=== PATIENT | male | born 1950 | race Caucasian/White ===

== ENCOUNTER 2016-04-25 10:12 | Emergency (ER) | payer OTHER ==
[~2016-04-25] VITALS: Ht 185.4 cm; Wt 128.7 kg
[~2016-04-25 10:12] MED LIST: APRESOLINE50 MG PO; ASPIRIN81 M2 PO; ATIVAN0.5 MG PO; Aspirin Chewable PO; BRILINTA90 MG PO; CILOSTAZOL100 MG PO; Corgard PO; FISH OIL SOFTG1 EACH PO; Fish Oil PO; GLIMEPIRIDE4 MG PO; HUMALOG100 UNIT/1 SC; HYDROCHLOROTHIA25 MG PO; Habitrol,Nicoderm CQ TD; Hydrodiuril,Oretic,E PO; IMODIUM MS REL1 EACH PO; LANSOPRAZOLE30 MG PO; LANTUS 3 M100 UNITS1 SC; LEXAPRO10 MG PO; LEXAPRO20 MG PO; LISINOPRIL20 MG PO; LISINOPRIL5 MG PO; LYRICA150 MG PO; Levaquin PO; Lipitor PO; NADOLOL40 MG PO; NITROSTAT0.4 MG SL; NORCO 5/3251 TABLET PO; NOVOLOG PE100 UNITS/ SC; Nitrostat,NitroQuick SL; PLAVIX75 MG PO; PRALUENT S75 MG/1 ML SC; PRINIVIL20 MG PO; PRINIVIL5 MG PO; PROTONIX40 MG PO; Plavix PO; Protonix PO; REPATHA SU140 MG/1 M SC; TOPROL XL25 MG PO; TRICOR48 MG PO; VITAMIN D1000 INTUN PO; XANAX XR0.5 MG PO; XANAX0.5 MG PO; Xanax PO; ZOFRAN4 MG PO; Zestril,Prinivil PO
[2016-04-25 11:06] LABS: HEMATOCRIT 41.3 % (38.0-50.0); MCH 26.1 PG (29.0-34.0); MCHC 31.7 G/DL (30.0-36.0); MCV 82.3 FL (86-99); MEAN PLAT.VOLUME 10.3 uM^3 (9.0-12.4); PLATELET COUNT 158 K/uL (156-360); RBC DIS.WIDTH-CV 16.1 % (11.8-14.6); RBC DIS.WIDTH-SD 47.9 % (39-53); RED BLOOD COUNT 5.02 M/uL (4.00-5.50); WHITE BLOOD COUNT 12.3 K/uL (4.1-10.2)
[2016-04-25 11:14] LABS: CHLORIDE 105 mEq/L (99-109); POTASSIUM 4.8 mEq/L (3.7-5.4); SODIUM 141 mEq/L (136-147)
[2016-04-25 11:16] LABS: GLUCOSE 230 mg/dL (70-99)
[2016-04-25 11:17] LABS: ANION GAP 10 MEQ/L (2-14)
[2016-04-25 11:18] LABS: TOTAL BILIRUBIN 0.5 mg/dL (0.0-1.0)
[2016-04-25 11:19] LABS: ALKALINE PHOSPHATASE 117 IU/L (3-129); GFR ESTIMATE (CALCULATED) 31 mL/min/
[2016-04-25 11:21] LABS: UREA NITROGEN (BUN) 33 mg/dL (9-23)
[2016-04-25 12:21] LABS: ADD MIUA? YES; BILIRUBIN NEGATIVE; BLOOD NEGATIVE; COLOR YELLOW ((YELLOW)); GLUCOSE (STRIP) 50; KETONES NEGATIVE; LEUKOCYTES NEGATIVE; NITRITE NEGATIVE; PROTEIN (STRIP) 100; SPECIFIC GRAVITY 1.021 (1.000-1.030); UROBILINOGEN 0.2 MG/DL (0.2-1.0)
[2016-04-25 12:35] LABS: BACTERIA RARE /HPF; EPITHELIAL CELLS NONE SEEN /HPF; HYALINE CASTS 0-5 /LPF; MUCUS TRACE /LPF; WHITE BLOOD CELLS 0-5 /HPF (0-5)
[2016-04-25 13:18] LABS: TROP-I INTERPRETATION NEGATIVE; TROPONIN-I 0.03 ng/mL (0.0-0.30)
[2016-04-25 14:16] VITALS: BP 144/73
== END 2016-04-25 14:17 | disposition home or self-care (01) ==
LOC: EME → EDBD 10:12 → EME 14:17
PROVIDERS: Nurse Practitioner Family
DX: S22.32XA Fracture of one rib, left side, initial encounter for closed fracture (principal); R10.9 Unspecified abdominal pain; E11.9 Type 2 diabetes mellitus without complications; E78.5 Hyperlipidemia, unspecified; I10 Essential (primary) hypertension; I25.2 Old myocardial infarction; K21.9 Gastro-esophageal reflux disease without esophagitis; Z86.718 Personal history of other venous thrombosis and embolism; Z98.61 Coronary angioplasty status; Z79.4 Long term (current) use of insulin; F17.200 Nicotine dependence, unspecified, uncomplicated
CPT/HCPCS: 74000; 80053; 81003; 84484; 85027; 93005; 99281; 99285; J1885; J7030

== ENCOUNTER 2016-06-21 18:48 | Observation (INO) | payer OTHER ==
[~2016-06-21] VITALS: Ht 185.4 cm; Wt 123.5 kg
[2016-06-21 20:08] LABS: HEMATOCRIT 39.8 % (38.0-50.0); MCH 25.8 PG (29.0-34.0); MCHC 31.4 G/DL (30.0-36.0); MCV 82.1 FL (86-99); MEAN PLAT.VOLUME 10.7 uM^3 (9.0-12.4); PLATELET COUNT 153 K/uL (156-360); RBC DIS.WIDTH-CV 16.3 % (11.8-14.6); RBC DIS.WIDTH-SD 48.9 % (39-53); RED BLOOD COUNT 4.85 M/uL (4.00-5.50); WHITE BLOOD COUNT 12.5 K/uL (4.1-10.2)
[2016-06-21 20:17] LABS: CHLORIDE 107 mEq/L (99-109); POTASSIUM 4.8 mEq/L (3.7-5.4); SODIUM 138 mEq/L (136-147)
[2016-06-21 20:18] LABS: GLUCOSE 195 mg/dL (70-99)
[2016-06-21 20:20] LABS: ANION GAP 11 MEQ/L (2-14)
[2016-06-21 20:22] LABS: GFR ESTIMATE (CALCULATED) 31 mL/min/
[2016-06-21 20:23] LABS: UREA NITROGEN (BUN) 30 mg/dL (9-23)
[2016-06-21 20:27] LABS: TOTAL BILIRUBIN 0.4 mg/dL (0.0-1.0)
[2016-06-21 20:28] LABS: ALKALINE PHOSPHATASE 103 IU/L (3-129)
[2016-06-21 20:29] LABS: TROP-I INTERPRETATION NEGATIVE; TROPONIN-I 0.05 ng/mL (0.0-0.30)
[2016-06-21 20:31] LABS: DIRECT BILIRUBIN 0.1 mg/dL (0.0-0.3)
[2016-06-21 20:32] LABS: LIPASE 38 U/L (1.0-51.0)
[2016-06-21] MEDS ORDERED: IMODIUM A-D2 M2 PO (23:07)
[2016-06-21] MEDS ORDERED: LO-DOSE ASPIRIN81 M2 PO (23:08)
[2016-06-21] MEDS ORDERED: ATIVAN0.5 MG PO (23:08)
[2016-06-21] MEDS ORDERED: METOPROLOL TART25 MG PO (23:10)
[2016-06-21] MEDS ORDERED: ISOSORBIDE MONO30 MG PO (23:10)
[2016-06-21] MEDS ORDERED: LISINOPRIL20 MG PO (23:11)
[2016-06-21] MEDS ORDERED: TRESIBA FL200 UNIT/1 SC (23:13)
[2016-06-21] MEDS ORDERED: HUMALOG100 UNIT/1 SC (23:14)
[2016-06-21] MEDS ORDERED: NICOTINE PATCH1 EAC2 TD (23:15)
[2016-06-22 02:29] VITALS: BP 152/73
[2016-06-22 05:33] LABS: BASOPHIL COUNT 0.1 K/uL (0-0.1); EOSINOPHIL (%) 1.9 % (0-5); EOSINOPHIL COUNT 0.2 K/uL (0-0.3); HEMATOCRIT 39.2 % (38.0-50.0); IMMATURE GRANULOCYTE (%) 0.8 % (0.0-0.7); IMMATURE GRANULOCYTE COUNT 0.1 K/uL; INSTRUMENT ABS NEUTROPHIL CT 8.2 K/uL; LYMPHOCYTE COUNT 2.2 K/uL (1.0-2.8); MCH 25.3 PG (29.0-34.0); MCHC 30.6 G/DL (30.0-36.0); MCV 82.7 FL (86-99); MEAN PLAT.VOLUME 10.5 uM^3 (9.0-12.4); MONOCYTE (%) 9.5 % (3-12); MONOCYTE COUNT 1.1 K/uL (0-0.8); NEUTROPHIL (%) 68.6 % (45-76); NEUTROPHIL COUNT 8.2 K/uL (1.8-6.4); PLATELET COUNT 137 K/uL (156-360); RBC DIS.WIDTH-SD 48.2 % (39-53); RED BLOOD COUNT 4.74 M/uL (4.00-5.50); WHITE BLOOD COUNT 11.9 K/uL (4.1-10.2)
[2016-06-22 05:49] LABS: ANION GAP 7 MEQ/L (2-14); CHLORIDE 104 MEQ/L (99-109); GFR ESTIMATE (CALCULATED) 32 mL/min/; SAMPLE HEMOLYSIS CHECK 0; SAMPLE ICTERIC CHECK 0; SAMPLE LIPEMIA CHECK 0; SODIUM 138 MEQ/L (136-147); UREA NITROGEN (BUN) 30 mg/dL (9-23)
[2016-06-22 05:54] LABS: GLUCOSE 96 mg/dL (70-99)
[2016-06-22 08:00] VITALS: BP 135/64
[2016-06-22 08:40] LABS: POINT-OF-CARE METER ID UU14162513
[2016-06-22 12:27] LABS: POINT-OF-CARE METER ID UU13113700
[2016-06-22 12:42] VITALS: BP 143/66
[2016-06-22 14:47] VITALS: BP 143/69
[2016-06-22 16:57] LABS: POINT-OF-CARE METER ID UU13113831
[2016-06-22 20:01] VITALS: BP 154/71
[2016-06-22 20:58] LABS: POINT-OF-CARE METER ID UU13113831
[2016-06-23] VITALS: BP 174/84
[2016-06-23 03:40] VITALS: BP 180/69
[2016-06-23 06:01] LABS: HEMATOCRIT 41.5 % (38.0-50.0); MCH 25.4 PG (29.0-34.0); MCHC 30.6 G/DL (30.0-36.0); MEAN PLAT.VOLUME 10.2 uM^3 (9.0-12.4); PLATELET COUNT 140 K/uL (156-360); RBC DIS.WIDTH-CV 16.5 % (11.8-14.6); RBC DIS.WIDTH-SD 49.7 % (39-53); WHITE BLOOD COUNT 12.1 K/uL (4.1-10.2)
[2016-06-23 06:22] LABS: ANION GAP 8 MEQ/L (2-14); CHLORIDE 105 MEQ/L (99-109); GFR ESTIMATE (CALCULATED) 36 mL/min/; GLUCOSE 95 mg/dL (70-99); POTASSIUM 4.3 MEQ/L (3.7-5.4); SAMPLE HEMOLYSIS CHECK 0; SAMPLE ICTERIC CHECK 0; SAMPLE LIPEMIA CHECK 0; SODIUM 139 MEQ/L (136-147); UREA NITROGEN (BUN) 25 mg/dL (9-23)
[2016-06-23 08:11] VITALS: BP 180/81
[2016-06-23 08:18] LABS: POINT-OF-CARE METER ID UU14162513
[2016-06-23] MEDS ORDERED: CIPRO500 MG PO (09:51)
[2016-06-23] MEDS ORDERED: XANAX1 MG PO (09:51)
[2016-06-23] MEDS ORDERED: FLAGYL500 MG PO (09:51)
== END 2016-06-23 11:10 | disposition home or self-care (01) ==
LOC: EME → EDBD 18:48 → 5WEST 23:23 → EDOF 23:23 → 5WEST 06-22 02:10
PROVIDERS: Emergency Medicine; Hospitalist; Internal Medicine; Internal Medicine Gastroenterology
DX: K57.32 Diverticulitis of large intestine without perforation or abscess without bleeding (principal); I25.10 Atherosclerotic heart disease of native coronary artery without angina pectoris; Z95.5 Presence of coronary angioplasty implant and graft; I12.9 Hypertensive chronic kidney disease with stage 1 through stage 4 chronic kidney disease, or unspecified chronic kidney disease; N18.9 Chronic kidney disease, unspecified; K74.60 Unspecified cirrhosis of liver; E11.22 Type 2 diabetes mellitus with diabetic chronic kidney disease; E78.5 Hyperlipidemia, unspecified; F17.200 Nicotine dependence, unspecified, uncomplicated; D72.829 Elevated white blood cell count, unspecified; D69.6 Thrombocytopenia, unspecified; K21.9 Gastro-esophageal reflux disease without esophagitis; K22.70 Barrett's esophagus without dysplasia; I73.9 Peripheral vascular disease, unspecified; E66.9 Obesity, unspecified; Z68.35 Body mass index [BMI] 35.0-35.9, adult; F41.9 Anxiety disorder, unspecified
CPT/HCPCS: 71010; 74176; 80048; 80069; 80076; 82948; 83690; 83880; 84484; 85025; 85027; 93005; 99281; 99285; G0378; J0696; J1650; J1815; J2270; J2405; J2543; J3010; J7030; J7050; S0030

== ENCOUNTER 2016-07-09 06:26 | Inpatient (IN) | payer OTHER ==
[~2016-07-09] VITALS: Ht 185.4 cm; Wt 119.5 kg
[~2016-07-09 06:26] MED LIST changes: +CIPRO500 MG PO; +FLAGYL500 MG PO; +IMODIUM A-D2 M2 PO; +ISOSORBIDE MONO30 MG PO; +LO-DOSE ASPIRIN81 M2 PO; +METOPROLOL TART25 MG PO; +NICOTINE PATCH1 EAC2 TD; +TRESIBA FL200 UNIT/1 SC; +XANAX1 MG PO
[2016-07-09 07:24] LABS: EOSINOPHIL (%) 0.1 % (0-5); HEMATOCRIT 40.4 % (38.0-50.0); IMMATURE GRANULOCYTE (%) 1.5 % (0.0-0.7); IMMATURE GRANULOCYTE COUNT 0.3 K/uL; INSTRUMENT ABS NEUTROPHIL CT 16.1 K/uL; LYMPHOCYTE COUNT 1.4 K/uL (1.0-2.8); MCH 25.4 PG (29.0-34.0); MCHC 30.4 G/DL (30.0-36.0); MCV 83.5 FL (86-99); MEAN PLAT.VOLUME 10.2 uM^3 (9.0-12.4); MONOCYTE COUNT 0.9 K/uL (0-0.8); NEUTROPHIL (%) 86.1 % (45-76); NEUTROPHIL COUNT 16.1 K/uL (1.8-6.4); PLATELET COUNT 253 K/uL (156-360); RBC DIS.WIDTH-CV 17.3 % (11.8-14.6); RBC DIS.WIDTH-SD 51.1 % (39-53); RED BLOOD COUNT 4.84 M/uL (4.00-5.50); WHITE BLOOD COUNT 18.7 K/uL (4.1-10.2)
[2016-07-09 08:00] LABS: ALKALINE PHOSPHATASE 109 IU/L (3-129); ANION GAP 12 MEQ/L (2-14); CHLORIDE 104 MEQ/L (99-109); GFR ESTIMATE (CALCULATED) 41 mL/min/; GLUCOSE 220 mg/dL (70-99); POTASSIUM 4.4 MEQ/L (3.7-5.4); SAMPLE HEMOLYSIS CHECK 0; SAMPLE ICTERIC CHECK 0; SAMPLE LIPEMIA CHECK 0; SODIUM 139 MEQ/L (136-147); TOTAL BILIRUBIN 0.9 MG/DL (0.0-1.0); UREA NITROGEN (BUN) 42 mg/dL (9-23)
[2016-07-09 08:06] LABS: TROP-I INTERPRETATION POSITIVE; TROPONIN-I 2.18 ng/mL (0.0-0.30)
[2016-07-09] MEDS ORDERED: BUSPIRONE HCL10 MG PO (08:44)
[2016-07-09] MEDS ORDERED: ISOSORBIDE MONO30 MG PO (08:46)
[2016-07-09] MEDS ORDERED: LORAZEPAM0.5 MG PO (08:47)
[2016-07-09 09:21] LABS: INTER. NORMALIZED RATIO 1.4; PROTHROMBIN TIME 14.8 (9.2-11.2); PTT 25.7 (25-32)
[2016-07-09 10:48] LABS: PCO2 40 mm Hg (35-45); PO2 62 mm Hg (80-100)
[2016-07-09 10:49] LABS: BASE EXCESS 0 mEq/L (-3 to +3); BICARBONATE 24.8 mEq/L (22-26); CARBOXY HGB 5.1 % (0-5); METHEMOGLOBIN 0.9 % (0-1.5)
[2016-07-09 12:21] VITALS: BP 157/71
[2016-07-09] MEDS ORDERED: NOVOLOG 10100 UNITS/ SC (12:26)
[2016-07-09 13:10] LABS: TROP-I INTERPRETATION POSITIVE; TROPONIN-I 2.36 ng/mL (0.0-0.30)
[2016-07-09 16:11] LABS: POINT-OF-CARE METER ID UU13113781
[2016-07-09 16:37] VITALS: BP 127/66
[2016-07-09 19:30] VITALS: BP 164/81
[2016-07-09 19:51] LABS: TROP-I INTERPRETATION POSITIVE; TROPONIN-I 2.99 ng/mL (0.0-0.30)
[2016-07-09 20:55] LABS: POINT-OF-CARE METER ID UU14174216
[2016-07-10] VITALS (7 sets, daily range): BP systolic 115–145; BP diastolic 59–80
[2016-07-10 06:12] LABS: EOSINOPHIL (%) 0.1 % (0-5); HEMATOCRIT 38.7 % (38.0-50.0); IMMATURE GRANULOCYTE (%) 1.5 % (0.0-0.7); IMMATURE GRANULOCYTE COUNT 0.2 K/uL; INSTRUMENT ABS NEUTROPHIL CT 12.8 K/uL; LYMPHOCYTE COUNT 1.8 K/uL (1.0-2.8); MCH 25.3 PG (29.0-34.0); MCHC 30.2 G/DL (30.0-36.0); MCV 83.6 FL (86-99); MEAN PLAT.VOLUME 10.5 uM^3 (9.0-12.4); MONOCYTE (%) 5.7 % (3-12); MONOCYTE COUNT 0.9 K/uL (0-0.8); NEUTROPHIL COUNT 12.8 K/uL (1.8-6.4); PLATELET COUNT 207 K/uL (156-360); RBC DIS.WIDTH-CV 17.3 % (11.8-14.6); RBC DIS.WIDTH-SD 50.7 % (39-53); RED BLOOD COUNT 4.63 M/uL (4.00-5.50); WHITE BLOOD COUNT 15.8 K/uL (4.1-10.2)
[2016-07-10 07:36] LABS: POINT-OF-CARE METER ID UU14174216
[2016-07-10 09:01] LABS: HEMATOCRIT 37.1 % (38.0-50.0); MCH 25.7 PG (29.0-34.0); MCV 82.8 FL (86-99); MEAN PLAT.VOLUME 10.5 uM^3 (9.0-12.4); PLATELET COUNT 191 K/uL (156-360); RBC DIS.WIDTH-CV 17.6 % (11.8-14.6); RBC DIS.WIDTH-SD 50.8 % (39-53); RED BLOOD COUNT 4.48 M/uL (4.00-5.50); WHITE BLOOD COUNT 14.2 K/uL (4.1-10.2)
[2016-07-10 09:22] LABS: ALKALINE PHOSPHATASE 99 IU/L (3-129); ANION GAP 10 MEQ/L (2-14); CHLORIDE 107 MEQ/L (99-109); GFR ESTIMATE (CALCULATED) 38 mL/min/; GLUCOSE 147 mg/dL (70-99); POTASSIUM 4.4 MEQ/L (3.7-5.4); SAMPLE HEMOLYSIS CHECK 0; SAMPLE ICTERIC CHECK 0; SAMPLE LIPEMIA CHECK 0; SODIUM 141 MEQ/L (136-147); TOTAL BILIRUBIN 0.9 MG/DL (0.0-1.0); UREA NITROGEN (BUN) 47 mg/dL (9-23)
[2016-07-10 09:41] LABS: TROP-I INTERPRETATION POSITIVE; TROPONIN-I 2.98 ng/mL (0.0-0.30)
[2016-07-10 11:24] LABS: POINT-OF-CARE METER ID UU14174216
[2016-07-10 14:45] LABS: POC NON-PRINT COM 1 ND
[2016-07-10 16:49] LABS: POINT-OF-CARE USER ID ENVKC36
[2016-07-10 21:02] LABS: POINT-OF-CARE METER ID UU14174216
[2016-07-11 04:42] VITALS: BP 136/78
[2016-07-11 06:18] LABS: HEMATOCRIT 37.9 % (38.0-50.0); MCH 25.9 PG (29.0-34.0); MCHC 31.1 G/DL (30.0-36.0); MCV 83.3 FL (86-99); MEAN PLAT.VOLUME 10.5 uM^3 (9.0-12.4); PLATELET COUNT 199 K/uL (156-360); RBC DIS.WIDTH-CV 18.1 % (11.8-14.6); RBC DIS.WIDTH-SD 52.1 % (39-53); RED BLOOD COUNT 4.55 M/uL (4.00-5.50); WHITE BLOOD COUNT 12.8 K/uL (4.1-10.2)
[2016-07-11 06:50] LABS: ANION GAP 8 MEQ/L (2-14); CHLORIDE 104 MEQ/L (99-109); GFR ESTIMATE (CALCULATED) 32 mL/min/; SAMPLE HEMOLYSIS CHECK 0; SAMPLE ICTERIC CHECK 0; SAMPLE LIPEMIA CHECK 0; SODIUM 141 MEQ/L (136-147); UREA NITROGEN (BUN) 52 mg/dL (9-23)
[2016-07-11 06:52] LABS: GLUCOSE 108 mg/dL (70-99)
[2016-07-11 08:10] LABS: POINT-OF-CARE METER ID UU14174216
[2016-07-11 08:45] VITALS: BP 139/63
[2016-07-11 13:56] LABS: POINT-OF-CARE METER ID UU13113696
[2016-07-11 16:40] VITALS: BP 140/81
[2016-07-11 17:30] VITALS: BP 102/58
[2016-07-11 20:15] VITALS: BP 151/84
[2016-07-11 23:30] VITALS: BP 140/63
[2016-07-12 03:14] VITALS: BP 138/74
[2016-07-12 07:19] VITALS: BP 144/67
[2016-07-12 07:51] LABS: POINT-OF-CARE METER ID UU14174216
[2016-07-12 09:02] LABS: HEMATOCRIT 34.6 % (38.0-50.0); MCH 25.4 PG (29.0-34.0); MCHC 30.3 G/DL (30.0-36.0); MCV 83.6 FL (86-99); MEAN PLAT.VOLUME 10.2 uM^3 (9.0-12.4); PLATELET COUNT 145 K/uL (156-360); RBC DIS.WIDTH-CV 17.7 % (11.8-14.6); RBC DIS.WIDTH-SD 51.5 % (39-53); RED BLOOD COUNT 4.14 M/uL (4.00-5.50)
[2016-07-12 09:04] LABS: WHITE BLOOD COUNT 8.9 K/uL (4.1-10.2)
[2016-07-12 09:10] LABS: ANION GAP 10 MEQ/L (2-14); CHLORIDE 108 MEQ/L (99-109); GFR ESTIMATE (CALCULATED) 38 mL/min/; GLUCOSE 133 mg/dL (70-99); SAMPLE HEMOLYSIS CHECK 0; SAMPLE ICTERIC CHECK 0; SAMPLE LIPEMIA CHECK 0; SODIUM 141 MEQ/L (136-147); UREA NITROGEN (BUN) 43 mg/dL (9-23)
[2016-07-12 12:02] VITALS: BP 150/67
[2016-07-12 17:16] VITALS: BP 168/78
[2016-07-12 20:11] VITALS: BP 141/78
[2016-07-12 21:15] LABS: POINT-OF-CARE METER ID UU14174216
[2016-07-13] VITALS: BP 143/65
[2016-07-13 00:07] VITALS: BP 143/65
[2016-07-13 04:12] VITALS: BP 142/66
[2016-07-13 08:40] VITALS: BP 164/78
[2016-07-13 09:18] LABS: HEMATOCRIT 36.1 % (38.0-50.0); MCH 25.6 PG (29.0-34.0); MCHC 29.9 G/DL (30.0-36.0); MCV 85.5 FL (86-99); MEAN PLAT.VOLUME 11.2 uM^3 (9.0-12.4); PLATELET COUNT 126 K/uL (156-360); RBC DIS.WIDTH-CV 18.2 % (11.8-14.6); RBC DIS.WIDTH-SD 53.9 % (39-53); RED BLOOD COUNT 4.22 M/uL (4.00-5.50); WHITE BLOOD COUNT 7.9 K/uL (4.1-10.2)
[2016-07-13 09:35] LABS: CHLORIDE 112 mEq/L (99-109); SODIUM 142 mEq/L (136-147)
[2016-07-13 09:36] LABS: GLUCOSE 131 mg/dL (70-99)
[2016-07-13 09:38] LABS: ANION GAP 9 MEQ/L (2-14)
[2016-07-13 09:40] LABS: GFR ESTIMATE (CALCULATED) 41 mL/min/
[2016-07-13 09:41] LABS: UREA NITROGEN (BUN) 32 mg/dL (9-23)
[2016-07-13 11:37] VITALS: BP 158/72
[2016-07-13] MEDS ORDERED: CARVEDILOL3.125 MG PO (13:29)
[2016-07-13] MEDS ORDERED: PROMETHAZINE HC25 M1 PO (13:29)
[2016-07-13] MEDS ORDERED: MIRTAZAPINE15 MG PO (13:32)
[2016-07-13] MEDS ORDERED: FUROSEMIDE40 MG PO (13:33)
[2016-07-13] MEDS ORDERED: CLONAZEPAM0.5 MG PO (13:34)
== END 2016-07-13 14:21 | disposition home or self-care (01) | DRG 250 ==
LOC: EME → EDBD 06:26 → EME 06:26 → EDOF 09:46 → 4EAST 09:46
PROVIDERS: Emergency Medicine; Hospitalist; Internal Medicine; Physician Assistant
DX: T82.857A Stenosis of other cardiac prosthetic devices, implants and grafts, initial encounter (principal); I21.4 Non-ST elevation (NSTEMI) myocardial infarction; I25.10 Atherosclerotic heart disease of native coronary artery without angina pectoris; R09.02 Hypoxemia; I13.0 Hypertensive heart and chronic kidney disease with heart failure and stage 1 through stage 4 chronic kidney disease, or unspecified chronic kidney disease; E11.22 Type 2 diabetes mellitus with diabetic chronic kidney disease; N18.3 Chronic kidney disease, stage 3 (moderate); I50.9 Heart failure, unspecified; N17.9 Acute kidney failure, unspecified; Z95.5 Presence of coronary angioplasty implant and graft; E78.5 Hyperlipidemia, unspecified; K74.60 Unspecified cirrhosis of liver; E66.01 Morbid (severe) obesity due to excess calories; Z68.34 Body mass index [BMI] 34.0-34.9, adult; F32.9 Major depressive disorder, single episode, unspecified; F41.1 Generalized anxiety disorder; G47.00 Insomnia, unspecified; F17.210 Nicotine dependence, cigarettes, uncomplicated; Y83.2 Surgical operation with anastomosis, bypass or graft as the cause of abnormal reaction of the patient, or of later complication, without mention of misadventure at the time of the procedure; I42.9 Cardiomyopathy, unspecified; I08.3 Combined rheumatic disorders of mitral, aortic and tricuspid valves
CPT/HCPCS: 36600; 70450; 71010; 80048; 80053; 81003; 82140; 82272; 82803; 82948; 83880; 84484; 85025; 85027; 85347; 85610; 85730; 87086; 93005; 93306; 94640; 94640 76; 94760; 94799; 99202; 99281; 99285; C1725; C1769; C1887; J0583; J1200; J1644; J1815; J1940; J2060; J2250; J2405; J3010; J7030; J7050; Q0169

== ENCOUNTER 2016-10-11 03:09 | Inpatient (IN) | payer OTHER ==
[~2016-10-11] VITALS: Ht 185.4 cm; Wt 132.3 kg
[~2016-10-11 03:09] MED LIST changes: +BUSPIRONE HCL10 MG PO; +CARVEDILOL3.125 MG PO; +CLONAZEPAM0.5 MG PO; +FUROSEMIDE40 MG PO; +LORAZEPAM0.5 MG PO; +MIRTAZAPINE15 MG PO; +NOVOLOG 10100 UNITS/ SC; +PROMETHAZINE HC25 M1 PO
[2016-10-11 03:53] LABS: BASOPHIL COUNT 0.1 K/uL (0-0.1); EOSINOPHIL (%) 1.6 % (0-5); EOSINOPHIL COUNT 0.2 K/uL (0-0.3); HEMATOCRIT 33.1 % (38.0-50.0); IMMATURE GRANULOCYTE (%) 1.3 % (0.0-0.7); IMMATURE GRANULOCYTE COUNT 0.2 K/uL; INSTRUMENT ABS NEUTROPHIL CT 10.2 K/uL; LYMPHOCYTE COUNT 1.2 K/uL (1.0-2.8); MCH 26.1 PG (29.0-34.0); MCHC 30.5 G/DL (30.0-36.0); MCV 85.5 FL (86-99); MEAN PLAT.VOLUME 10.4 uM^3 (9.0-12.4); MONOCYTE (%) 9.5 % (3-12); MONOCYTE COUNT 1.2 K/uL (0-0.8); NEUTROPHIL (%) 78.1 % (45-76); NEUTROPHIL COUNT 10.2 K/uL (1.8-6.4); PLATELET COUNT 132 K/uL (156-360); RBC DIS.WIDTH-CV 18.5 % (11.8-14.6); RBC DIS.WIDTH-SD 55.8 % (39-53); RED BLOOD COUNT 3.87 M/uL (4.00-5.50); WHITE BLOOD COUNT 13.1 K/uL (4.1-10.2)
[2016-10-11 03:59] LABS: INTER. NORMALIZED RATIO 1.2; PROTHROMBIN TIME 13.7 SEC (10.2-12.9)
[2016-10-11 04:05] LABS: CHLORIDE 103 mEq/L (99-109); POTASSIUM 4.3 mEq/L (3.7-5.4); SODIUM 139 mEq/L (136-147)
[2016-10-11 04:08] LABS: GLUCOSE 179 mg/dL (70-99)
[2016-10-11 04:09] LABS: ANION GAP 10 MEQ/L (2-14)
[2016-10-11 04:10] LABS: TOTAL BILIRUBIN 0.6 mg/dL (0.0-1.0)
[2016-10-11 04:11] LABS: ALKALINE PHOSPHATASE 157 IU/L (3-129)
[2016-10-11 04:12] LABS: GFR ESTIMATE (CALCULATED) 20 mL/min/
[2016-10-11 04:13] LABS: UREA NITROGEN (BUN) 43 mg/dL (9-23)
[2016-10-11 04:15] LABS: TROP-I INTERPRETATION POSITIVE
[2016-10-11 04:33] LABS: TROPONIN-I 1.72 ng/mL (0.0-0.30)
[2016-10-11] MEDS ORDERED: FLOMAX0.4 MG PO (05:40)
[2016-10-11 06:43] LABS: HEMATOCRIT 32.5 % (38.0-50.0); MCH 26.3 PG (29.0-34.0); MCHC 30.8 G/DL (30.0-36.0); MCV 85.5 FL (86-99); MEAN PLAT.VOLUME 11.1 uM^3 (9.0-12.4); PLATELET COUNT 146 K/uL (156-360); RBC DIS.WIDTH-CV 18.6 % (11.8-14.6); RBC DIS.WIDTH-SD 57.2 % (39-53); WHITE BLOOD COUNT 14.3 K/uL (4.1-10.2)
[2016-10-11 08:29] LABS: Estimated Average Glucose 157 mg/dL (70-123); HEMOGLOBIN A1c (GLYCOHEMOGLOB) 7.1 % HGB (Below 5.7)
[2016-10-11 08:30] LABS: ADD MIUA? YES; BILIRUBIN NEGATIVE; BLOOD NEGATIVE; COLOR YELLOW ((YELLOW)); GLUCOSE (STRIP) NEGATIVE; KETONES NEGATIVE; LEUKOCYTES NEGATIVE; NITRITE NEGATIVE; PROTEIN (STRIP) 30; SPECIFIC GRAVITY 1.016 (1.000-1.030); UROBILINOGEN 0.2 MG/DL (0.2-1.0)
[2016-10-11] MEDS ORDERED: CLONAZEPAM0.5 MG PO (08:45)
[2016-10-11] MEDS ORDERED: LOPERAMIDE2 M1 PO (08:49)
[2016-10-11 08:51] LABS: BACTERIA NONE SEEN /HPF; CASTS PRESENT /LPF; EPITHELIAL CELLS NONE SEEN /HPF; HYALINE CASTS 0-5 /LPF; MUCUS NONE SEEN /LPF; RED BLOOD CELLS 0-5 /HPF (0-5); UCUL ADDED? NO; WHITE BLOOD CELLS 0-5 /HPF (0-5)
[2016-10-11 09:23] LABS: HDL CHOLESTEROL 27 MG/DL (Desirable>=40); LDL CHOLESTEROL 170 mg/dL (Desirable<100); NON-HDL CHOLESTEROL 194 mg/dL (Desirable<160); TOTAL CHOLESTEROL 221 mg/dL (Desirable<200); TRIGLYCERIDES 121 MG/DL (Normal: <150)
[2016-10-11 10:25] VITALS: BP 93/57
[2016-10-11 12:07] LABS: POINT-OF-CARE METER ID UU13113698
[2016-10-11 13:15] LABS: TROP-I INTERPRETATION POSITIVE; TROPONIN-I 2.37 ng/mL (0.0-0.30)
[2016-10-11 14:01] VITALS: BP 100/50
[2016-10-11 16:36] LABS: POINT-OF-CARE METER ID UU13113698
[2016-10-11 17:22] VITALS: BP 106/62
[2016-10-11 17:36] LABS: INTER. NORMALIZED RATIO 1.4; PROTHROMBIN TIME 15.1 SEC (10.2-12.9)
[2016-10-11 17:39] LABS: PTT 40.1 SEC (25-37)
[2016-10-11 18:15] LABS: TROP-I INTERPRETATION POSITIVE; TROPONIN-I 3.94 ng/mL (0.0-0.30)
[2016-10-11 19:40] VITALS: BP 91/52
[2016-10-11 20:51] LABS: POINT-OF-CARE METER ID UU13113781
[2016-10-11 21:30] VITALS: BP 98/56
[2016-10-11 23:54] VITALS: BP 91/53
[2016-10-12 03:20] VITALS: BP 90/52
[2016-10-12 05:06] LABS: BASOPHIL COUNT 0.1 K/uL (0-0.1); EOSINOPHIL (%) 2.1 % (0-5); EOSINOPHIL COUNT 0.3 K/uL (0-0.3); IMMATURE GRANULOCYTE (%) 1.2 % (0.0-0.7); IMMATURE GRANULOCYTE COUNT 0.2 K/uL; LYMPHOCYTE COUNT 1.5 K/uL (1.0-2.8); MCH 26.5 PG (29.0-34.0); MCHC 30.3 G/DL (30.0-36.0); MCV 87.2 FL (86-99); MEAN PLAT.VOLUME 10.8 uM^3 (9.0-12.4); MONOCYTE (%) 9.3 % (3-12); MONOCYTE COUNT 1.2 K/uL (0-0.8); NEUTROPHIL (%) 75.6 % (45-76); PLATELET COUNT 138 K/uL (156-360); RBC DIS.WIDTH-CV 18.6 % (11.8-14.6); RBC DIS.WIDTH-SD 57.9 % (39-53); RED BLOOD COUNT 3.44 M/uL (4.00-5.50); WHITE BLOOD COUNT 13.2 K/uL (4.1-10.2)
[2016-10-12 05:14] LABS: INTER. NORMALIZED RATIO 1.3; PROTHROMBIN TIME 14.7 SEC (10.2-12.9)
[2016-10-12 05:17] LABS: PTT 56.9 SEC (25-37)
[2016-10-12 06:03] LABS: ANION GAP 9 MEQ/L (2-14); CHLORIDE 106 MEQ/L (99-109); GFR ESTIMATE (CALCULATED) 20 mL/min/; POTASSIUM 4.5 MEQ/L (3.7-5.4); SAMPLE HEMOLYSIS CHECK 0; SAMPLE ICTERIC CHECK 0; SAMPLE LIPEMIA CHECK 0; SODIUM 142 MEQ/L (136-147); UREA NITROGEN (BUN) 53 mg/dL (9-23)
[2016-10-12 06:08] LABS: GLUCOSE 71 mg/dL (70-99)
[2016-10-12 07:30] VITALS: BP 98/59
[2016-10-12 11:55] LABS: TROP-I INTERPRETATION POSITIVE; TROPONIN-I 6.05 ng/mL (0.0-0.30)
[2016-10-12 14:51] LABS: INTER. NORMALIZED RATIO 1.3; PROTHROMBIN TIME 14.2 SEC (10.2-12.9)
[2016-10-12 14:54] LABS: PTT 36.3 SEC (25-37)
[2016-10-12 15:10] VITALS: BP 100/60
[2016-10-12 22:00] VITALS: BP 89/51
[2016-10-12 23:26] LABS: INTER. NORMALIZED RATIO 1.3; PROTHROMBIN TIME 14.4 SEC (10.2-12.9)
[2016-10-12 23:31] LABS: PTT 76.3 SEC (25-37)
[2016-10-13 00:30] VITALS: BP 92/62
[2016-10-13 05:18] LABS: EOSINOPHIL (%) 0.2 % (0-5); HEMATOCRIT 29.4 % (38.0-50.0); IMMATURE GRANULOCYTE (%) 1.7 % (0.0-0.7); IMMATURE GRANULOCYTE COUNT 0.3 K/uL; LYMPHOCYTE COUNT 1.8 K/uL (1.0-2.8); MCH 26.5 PG (29.0-34.0); MCHC 30.6 G/DL (30.0-36.0); MCV 86.7 FL (86-99); MEAN PLAT.VOLUME 11.4 uM^3 (9.0-12.4); MONOCYTE COUNT 1.4 K/uL (0-0.8); NEUTROPHIL (%) 81.9 % (45-76); PLATELET COUNT 172 K/uL (156-360); RBC DIS.WIDTH-CV 18.6 % (11.8-14.6); RBC DIS.WIDTH-SD 57.8 % (39-53); RED BLOOD COUNT 3.39 M/uL (4.00-5.50); WHITE BLOOD COUNT 19.5 K/uL (4.1-10.2)
[2016-10-13 05:58] LABS: ANION GAP 11 MEQ/L (2-14); CHLORIDE 102 MEQ/L (99-109); GFR ESTIMATE (CALCULATED) 18 mL/min/; SAMPLE HEMOLYSIS CHECK 0; SAMPLE ICTERIC CHECK 0; SAMPLE LIPEMIA CHECK 0; SODIUM 137 MEQ/L (136-147); UREA NITROGEN (BUN) 70 mg/dL (9-23)
[2016-10-13 05:59] LABS: GLUCOSE 245 mg/dL (70-99); POTASSIUM 5.6 MEQ/L (3.7-5.4)
[2016-10-13 07:30] VITALS: BP 101/60
[2016-10-13 08:34] LABS: POINT-OF-CARE USER ID NUTSLF44
[2016-10-13 12:00] VITALS: BP 100/60
[2016-10-13 12:23] LABS: POINT-OF-CARE USER ID NUTSLF44
[2016-10-13 17:06] LABS: POINT-OF-CARE USER ID NUTSLF44
[2016-10-13 19:45] VITALS: BP 106/65
[2016-10-13 21:10] LABS: POINT-OF-CARE METER ID UU13113698
[2016-10-13 23:27] VITALS: BP 98/74
== END 2016-10-14 06:52 ==
LOC: EME → EDBD 03:09 → 4EAST 04:53 → EDOF 04:53 → ENRESERV 04:57 → 4EAST 09:05 → CANRESERV 10-14 02:43 → ENRESERV 10-14 02:43 → 4EAST 10-14 06:52
PROVIDERS: Emergency Medicine; Hospitalist; Internal Medicine Nephrology; Physician Assistant Medical
DX: I21.4 Non-ST elevation (NSTEMI) myocardial infarction (principal); J96.00 Acute respiratory failure, unspecified whether with hypoxia or hypercapnia; N17.9 Acute kidney failure, unspecified; I13.0 Hypertensive heart and chronic kidney disease with heart failure and stage 1 through stage 4 chronic kidney disease, or unspecified chronic kidney disease; I50.20 Unspecified systolic (congestive) heart failure; N18.4 Chronic kidney disease, stage 4 (severe); E11.22 Type 2 diabetes mellitus with diabetic chronic kidney disease; E11.65 Type 2 diabetes mellitus with hyperglycemia; E11.51 Type 2 diabetes mellitus with diabetic peripheral angiopathy without gangrene; D69.6 Thrombocytopenia, unspecified; I95.9 Hypotension, unspecified; E87.5 Hyperkalemia; I25.110 Atherosclerotic heart disease of native coronary artery with unstable angina pectoris; I46.2 Cardiac arrest due to underlying cardiac condition; I25.5 Ischemic cardiomyopathy; E66.01 Morbid (severe) obesity due to excess calories; Z68.38 Body mass index [BMI] 38.0-38.9, adult; F32.1 Major depressive disorder, single episode, moderate; D72.829 Elevated white blood cell count, unspecified; Z66 Do not resuscitate; Z51.5 Encounter for palliative care; K74.60 Unspecified cirrhosis of liver; F17.210 Nicotine dependence, cigarettes, uncomplicated; E78.5 Hyperlipidemia, unspecified; J44.9 Chronic obstructive pulmonary disease, unspecified; K21.9 Gastro-esophageal reflux disease without esophagitis; D64.9 Anemia, unspecified; G89.29 Other chronic pain; M54.5 Low back pain; N40.0 Benign prostatic hyperplasia without lower urinary tract symptoms; F41.1 Generalized anxiety disorder; G47.00 Insomnia, unspecified; I44.0 Atrioventricular block, first degree; I25.2 Old myocardial infarction; Z95.5 Presence of coronary angioplasty implant and graft; Z87.81 Personal history of (healed) traumatic fracture; Z86.73 Personal history of transient ischemic attack (TIA), and cerebral infarction without residual deficits; Z79.82 Long term (current) use of aspirin; Z79.4 Long term (current) use of insulin; Z71.6 Tobacco abuse counseling; Z82.49 Family history of ischemic heart disease and other diseases of the circulatory system; Z80.51 Family history of malignant neoplasm of kidney; Z91.19 Patient's noncompliance with other medical treatment and regimen
CPT/HCPCS: 71010; 80048; 80053; 80061; 81003; 82140; 82948; 83036; 83735; 83880; 84100; 84484; 85025; 85027; 85379; 85610; 85730; 92950; 93005; 93306; 94799; 99202; 99281; 99285; J0282; J0461; J1170; J1644; J1815; J1940; J2405; J3010; J7050; J7512; S0028